=== PATIENT | female | born 1980 | race Caucasian/White ===

== ENCOUNTER 2019-07-19 22:57 | Emergency (ER) | payer BC, SELFPAY ==
[2019-07-19 23:02] VITALS: BP 196/129; PULSE 109; RESP 24; TEMP 36.5; O2SAT 100; BMI 42.9
--- NOTE | 2019-07-19 23:11 | W.ED.ARRPALP ---
HPI - Arrhythmia/Palpitations General: Chief Complaint: Arrhythmia/Palpitations Stated Complaint: heart racing Time Seen by Provider: 07/19/19 23:11 Source: patient Mode of arrival: ambulatory Limitations: no limitations History of Present Illness: HPI narrative: Patient comes in today for concerns of elevated heart rate. Patient states that she was sitting at home watching TV and noticed on her apple watch that her heart rate was elevated. She got more anxious about her heart rate being elevated and it jumped into the 150s. Patient has a family history of early coronary disease with her dad dying of a heart attack at age 36. Patient reports that she has no significant pain in her chest. Patient appears well. Patient appears in no pain. Patient thinks that it may have been a panic attack. Review of Systems General: Reports: 10 or more systems reviewed and unremarkable except in HPI and below Card: Reports: palpitations PFSH ED PFSH: Social History Smoking and tobacco status: never smoked Physical Exam Const: COMMON NORMALS: no acute distress and patient oriented x3 GENERAL APPEARANCE: cooperative HENMT: COMMON NORMALS: normocephalic, TM's normal bilaterally and Normal external nose present HEAD & SCALP: normal to inspection and normocephalic NOSE: Normal external nose present TYMPANIC MEMBRANE: TM's normal bilaterally MOUTH: Normal oral and palatal mucosa present Eye: GENERAL EYE: appearance normal, both eyes and all related structures Neck/C-Spine: COMMON NORMALS: full ROM Lymph: LYMPHATIC: no lymphadenopathy noted Chest: COMMONS NORMALS: normal inspection of the chest Resp: COMMON NORMALS: normal respiratory effort EFFORT & INSPECTION: Yes able to speak in complete sentences Cardio: COMMON NORMALS: regular rate and regular rhythm RATE: regular rate RHYTHM: regular rhythm GI: COMMON NORMALS: non-tender : COMMON NORMALS: Yes no CVA tenderness BLADDER/KIDNEY EXAM: Yes no CVA tenderness Back/Pelvis: COMMON NORMALS: no CVA tenderness and thoracic and lumbar spine normal to inspection Extremity: COMMON NORMALS: normal to inspection Neuro: COMMON NORMALS: patient oriented x3 and moves all extremities Psych: COMMON NORMALS: mental status grossly normal and cooperative Skin: COMMON NORMALS: no rashes or lesions noted GENERAL SKIN EXAM: no rashes or lesions noted Course Vital Signs: Vital signs: Vital Signs Temperature 97.7 F 07/19/19 23:02 Pulse Rate 82 05/18/20 23:54 Respiratory Rate 16 07/19/19 23:54 Blood Pressure 167/108 07/19/19 23:54 Pulse Oximetry 100 07/19/19 23:54 MDM - Arrhythmia/Palpitations MDM Narrative: Medical decision making narrative: Patient comes in tonight with concerns of elevated heart rate. Patient appears well. On exam patient's pulse rate was 100. Patient reports that it was up to 150 at home. Respirations are even lungs are clear to auscultation. No edema is noted in the extremities. Vital signs were normal except for some elevation in blood pressure. Differential diagnosis includes anxiety, arrhythmia, hyperthyroidism, electrolyte disturbance, anemia, PE. Laboratory values were fairly normal are nonspecific. D-dimer was negative. Reviewed exam with patient with recommendations for treatment and follow-up. Encourage healthy diet and activity for blood pressure control. Patient reported understanding and agreed to plan. Lab Data: Labs: Lab Results 07/19/19 07/19/19 07/19/19 Range/Units 23:28 23:28 23:28 WBC 10.6 H (4.0-10.0) 10^3/ uL RBC 4.67 (4.1-5.3) 10^6/u L Hgb 14.3 (11.5-15.3) g/dL Hct 43.8 (37.0-47.0) % MCV 93.8 (81-99) fL MCH 30.6 (28.0-34.0) pg MCHC 32.6 (30.0-36.0) g/dL RDW 11.6 L (12.1-15.1) % Plt Count 245 (130-400) 10^3/c mm MPV 11.7 H (7.4-10.4) fL Neut % (Auto) 60.7 % Lymph % (Auto) 31.0 % [place] % (Auto) 6.7 % Eos % (Auto) 0.8 % Baso % (Auto) 0.4 % Neut # (Auto) 6.5 (1.8-7.7) 10^3/u L Lymph # (Auto) 3.3 (0.8-4.8) 10^3/u L [place] # (Auto) 0.7 (0.2-0.9) 10^3/u L Eos # (Auto) 0.1 (0.0-0.8) 10^3/u L Baso # (Auto) 0.0 (0.0-0.1) 10^3/u L Nucleated RBC % (a uto) 0 % Nucleated RBCs # 0.0 /100WBC D-Dimer 0.52 (0-0.59) ug/mIFE U Sodium 137 (136-145) mmol/L Potassium 4.0 (3.5-5.1) mmol/L Chloride 101 (98-107) mmol/L Carbon Dioxide 23 (22-29) mmol/L Anion Gap 17.0 (5-19) BUN 10 (6-20) mg/dL Creatinine 0.8 (0.5-0.9) mg/dL GFR Calculation 80.3 L (90-130) mL/min Glucose 108 (65-115) mg/dL Calculated Osmolal ity 281 L (285-295) mOsm/k g Calcium 8.9 (8.5-10.5) mg/dL Total Bilirubin 0.3 (0.15-1.2) mg/dL AST 27 (0-32) U/L ALT 20 (0-33) U/L Alkaline Phosphata se 114 H (35-105) IU/L Total Protein 7.9 (6.6-8.7) g/dL Albumin 4.3 (3.5-5.2) g/dL Globulin 3.6 (1.3-4.6) g/dL TSH 3.92 (0.27-4.20) uIU/ mL EKG Data^: EKG 1: Attestation: I personally reviewed and interpreted this EKG as follows: (2308, sinus rhythm rate 94 bpm, regular, no ectopy or ST elevation) Discharge Plan Discharge Patient Disposition: Home, Self-Care Clinical Impression: Palpitations Condition: Stable Discharge Orders: Discharge Order (Routine); Ordered 07/20/19 Ordered By: Billy Johnson Referrals: Grzegorz Macario MD [Primary Care Provider] - Discharge Diet: Usual diet Discharge Activity: Increase activity as tolerated Patient Instructions: Palpitations (ED) Activity Restrictions/Additional Instructions: Home and rest. Drink plenty of fluids. Try to maintain healthy diet and activity. Look up the DASH diet for further assistance with blood pressure control. Follow-up with primary care in 1 week for recheck on blood pressure. Return to the ER for worsening symptoms, chest pain or new concerns. 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
--- NOTE | 2019-07-19 23:17 | ECG_ITS ---
Measurements Intervals [place] Rate: 94 P: 49 ND: 142 QRS: 44 QRSD: 87 T: 24 QT: 355 QTc: 444 SINUS RHYTHM POSSIBLE ANTERIOR MYOCARDIAL INFARCTION [30 ms Q WAVE IN V3/V4, OR R < 0.2 mV IN V4], PROBABLY OLD No previous ECG available for comparison Electronically Signed On 07-20-2019 20:48:51 CDT by Rojelio Walters M.D. [id number]
[2019-07-19 23:36] LABS: Basophils % 0.4 %; Eosinophils # 0.1 10^3/uL (0.0-0.8); Eosinophils % 0.8 %; Hematocrit 43.8 % (37.0-47.0); Hemoglobin 14.3 g/dL (11.5-15.3); Lymphocytes # 3.3 10^3/uL (0.8-4.8); Mean Corpuscular HGB Conc 32.6 g/dL (30.0-36.0); Mean Corpuscular Hemoglobin 30.6 pg (28.0-34.0); Mean Corpuscular Volume 93.8 fL (81-99); Mean Platelet Volume 11.7 fL (7.4-10.4); Monocytes # 0.7 10^3/uL (0.2-0.9); Monocytes % 6.7 %; Neutrophils # 6.5 10^3/uL (1.8-7.7); Neutrophils % 60.7 %; Nucleated Red Blood Cells % 0 %; Platelet Count 245 10^3/cmm (130-400); Red Blood Count 4.67 10^6/uL (4.1-5.3); Red Cell Distribution Width 11.6 % (12.1-15.1); White Blood Count 10.6 10^3/uL (4.0-10.0)
[2019-07-19 23:49] LABS: D Dimer 0.52 ug/mIFEU (0-0.59)
[2019-07-19 23:54] VITALS: BP 167/108; PULSE 82; RESP 16; O2SAT 100
[2019-07-20 00:05] LABS: Alanine Aminotransferase 20 U/L (0-33); Albumin Level 4.3 g/dL (3.5-5.2); Alkaline Phosphatase 114 IU/L (35-105); Blood Urea Nitrogen 10 mg/dL (6-20); Calcium 8.9 mg/dL (8.5-10.5); Carbon Dioxide 23 mmol/L (22-29); Chloride 101 mmol/L (98-107); Globulin 3.6 g/dL (1.3-4.6); Glomerular Filtration Rate 80.3 mL/min (90-130); Glucose 108 mg/dL (65-115); Osmolality Calculated 281 mOsm/kg (285-295); Sodium 137 mmol/L (136-145); Total Bilirubin 0.3 mg/dL (0.15-1.2); Total Protein 7.9 g/dL (6.6-8.7)
[2019-07-20 00:06] LABS: Aspartate Amino Transferase 27 U/L (0-32); Thyroid Stimulating Hormone 3.92 uIU/mL (0.27-4.20)
[2019-07-20 00:12] VITALS: BP 140/95; PULSE 81; RESP 16; O2SAT 100
== END 2019-07-20 00:18 | disposition home or self-care (01) ==
PROVIDERS: Emergency Provider Nurse Practitioner Family; PCP Family Medicine
DX: R00.2 Palpitations (principal)
CPT/HCPCS: 12345; 36415; 80053; 84443; 85025; 85378; 93005; 99282; 99283

== ENCOUNTER → 2019-12-26 17:14 | Outpatient (BNVA) | payer BC, SELFPAY | PROVIDERS: PCP Family Medicine; Visit Provider Emergency Medicine | DX: Z20.828 Contact with and (suspected) exposure to other viral communicable diseases (principal) | CPT/HCPCS: 87635 ==

== ENCOUNTER 2019-12-30 05:31 | Emergency (ER) | payer BC, SELFPAY ==
[2019-12-30 05:32] VITALS: O2SAT 100
--- NOTE | 2019-12-30 05:32 | PC.NURSE ---
Pt stated she has had off and on CP to left chest wall to left arm/to fingers. No associated symptoms. Pt stated her father passed at 36 yrs old secondary to heart attack, continued to stated her mother has a MD in past later years. Pt stated has had prior CP which was treated as Epigastric pain tx with antacid. Pt stated negative for pain on admission to ED
[2019-12-30 05:36] VITALS: PULSE 86; RESP 16; TEMP 36.9; O2SAT 100; BMI 44.6
--- NOTE | 2019-12-30 05:44 | XR_ITS ---
WS: [id number] Exam: XR chest 1V portable [id number] Date/Time of Exam: 12/30/2019 5:46 AM Reason For Exam: Chest pain Comparison 08/15/2013. Findings: The lungs are clear and fully expanded. Costophrenic angles are sharp. No infiltrates. Bronchovascula r relief appears normal. Cardiac silhouette is unremarkable. Bony elements are intact. Monitoring amrgo ds superimpose the chest. XR/XR chest 1V portable [id number] IMPRESSION: Unremarkable chest radiograph.
--- NOTE | 2019-12-30 05:44 | ECG_ITS ---
[facility] Test Date: 2019-12-30 Pat Name: Flores Millan Department: Room: Gender: Female Compressor Technician: : 1980 Requested By: Judy Francisco Order Number: [id number] Billy MD: JEYSON PITT Measurements Intervals [place] Rate: 77 P: 54 FL: 135 QRS: 42 QRSD: 93 T: 35 QT: 390 QTc: 441 Interpretive Statements SINUS RHYTHM INTERPRETATION BASED ON A DEFAULT AGE OF 40 YEARS Compared to ECG 07/19/2019 23:08:29 Myocardial infarct finding no longer present Electronically Signed On 12-30-2019 21:04:49 CDT by JEYSON PITT [id number]
--- NOTE | 2019-12-30 05:45 | ED_ITS ---
Documented by User: Judy Perez 12/30/19 06:01 HPI - Chest Pain General: Chief Complaint: Chest Pain Stated Complaint: cp, burning sensation down arm Time Seen by Provider: 12/30/19 05:41 Source: patient Mode of arrival: ambulatory Limitations: no limitations History of Present Illness: HPI narrative: Flores is a 39-year-old female comes in complaining of chest pressure and shortness of breath began last night. She states the pain radiates down her left arm. She unaware of any exacerbating or alleviating factors. She noticed her blood pressure is running high and she does not have a history of high blood pressure. Patient does have a family history of heart disease but she herself has no chronic medical problems. Patient denies any diaphoresis but did have nausea the patient states that she has had similar symptoms in the past but it was quite some time ago. Patient denies having anything similar to this in the past. She was seen here in the ER for the same complaint and it was determined to be gastrointestinal in cause. Associated symptoms: Reports dyspnea; Deny abdominal pain, diaphoresis, fever(s), nausea, palpitations, syncope or vomiting Review of Systems Const: Denies: fever(s), chills, body aches, fatigue, malaise or diaphoresis Eyes: Denies: change in vision, blurry vision, photophobia, eye discomfort, eye discharge, eye redness or yellow eyes ENMT: Denies: throat pain, odynophagia, hoarseness, swelling of lips/tongue, ear or mastoid pain, ear discharge, change in hearing or nasal discharge Card: Reports: chest pain; Denies: palpitations, irregular heart rhythm, edema, lightheadedness, syncope, pre-syncope, dyspnea on exertion or orthopnea Resp: Reports: dyspnea; Denies: productive cough, non-productive cough, wheezing, hemoptysis or chest congestion GI: Denies: abdominal pain, nausea, vomiting, hematemesis, coffee ground emesis, heartburn, diarrhea, constipation, GI cramping, hematochezia or melena : Denies: flank pain, dysuria, urinary frequency, urinary urgency or hematuria Musc: Denies: neck pain, back pain, extremity pain, extremity swelling, joint pain, joint swelling, joint redness, joint warmth or joint stiffness Skin/Breast: Denies: rash, pruritus, erythema, skin pain or skin tenderness Neuro: Denies: headache(s), numbness in extremities, weakness in extremities, sensory changes, lack of coordination, difficulty walking, dizziness, vertigo, confusion, Slurred speech present or seizure-like activity Augustin/Lymph: Denies: easy bruising, easy bleeding, petechiae, purpura or enlarged lymph nodes All/Imm: Denies: urticaria, throat swelling, tongue swelling, facial swelling or acute wheezing PFSH ED PFSH: Medical History (Updated 12/30/19 @ 08:55 by Joaquin Fabian DO) No pertinent past medical history Family History (Updated 12/30/19 @ 06:00 by Judy Perez) Other CAD (coronary artery disease) Social History Smoking and tobacco status: never smoked Physical Exam Const: COMMON NORMALS: no acute distress, patient oriented x3, no limitations and alert GENERAL APPEARANCE: cooperative HENMT: COMMON NORMALS: normocephalic, atraumatic, external ears normal, EAC's normal and Normal external nose present HEAD & SCALP: normal to inspection, normocephalic and atraumatic FACE & SINUS: normal facial exam and face symmetric NOSE: Normal external nose present and Normal nares present EXTERNAL EAR: Yes external ears normal EXTERNAL AUDITORY CANAL: EAC's normal MOUTH: Normal oral and palatal mucosa present, lip normal and tongue normal Eye: COMMON NORMALS: Equal, round and reactive pupils present and conjunctivae normal GENERAL EYE: appearance normal, both eyes and all related structures ALIGNMENT: Yes alignment normal PERIORBITAL: periorbital findings normal EYELID: eyelids normal CONJUNCTIVA: Yes conjunctivae normal SCLERA: sclerae normal PUPIL: Yes Equal, round and reactive pupils present Neck/C-Spine: COMMON NORMALS: full ROM, no lymphadenopathy, supple, no meningeal signs and no JVD GENERAL: Yes normal visual inspection and Yes trachea midline Chest: COMMONS NORMALS: normal inspection of the chest and normal palpation of entire chest wall Resp: COMMON NORMALS: normal respiratory effort, No retractions, No use of accessory muscles and clear to auscultation bilaterally EFFORT & INSPECTION: Yes able to speak in complete sentences and Yes symmetric chest movement AUSCULTATION: clear to auscultation bilaterally, no crackles, no rales, no rhonchi and no wheezes Cardio: COMMON NORMALS: no JVD, regular rate, regular rhythm, S1 normal heart sound present and S2 normal heart sound present RATE: regular rate RHYTHM: regular rhythm HEART SOUNDS: S1 normal heart sound present, S2 normal heart sound present, no click, no gallops, no murmurs and no rubs GI: COMMON NORMALS: Soft to palpation and No hepatosplenomegaly present PALPATION: Yes Soft to palpation, No Tenderness to palpation present (GI), No Guarding due to palpation present (GI), No Rigid due to palpation, Yes No hepatosplenomegaly present, No Hernia present, No Palpable mass present and No Pulsatile mass present : COMMON NORMALS: Yes no CVA tenderness BLADDER/KIDNEY EXAM: Yes no CVA tenderness EXTERNAL FEMALE EXAM: No Hernia present Back/Pelvis: COMMON NORMALS: no CVA tenderness, thoracic and lumbar spine normal to inspection, no thoracic nor lumbar tenderness and thoraco-lumbar ROM normal Extremity: COMMON NORMALS: normal to inspection, full ROM, capillary refill normal, no joint enlargement, no clubbing, cyanosis or edema and no calf tenderness Neuro: COMMON NORMALS: patient oriented x3, CN's II-XII intact bilaterally, moves all extremities, no focal motor deficits and no sensory deficits noted SENSORIUM/ORIENTATION: Yes alert MENINGEAL SIGNS: Yes no meningeal signs SPEECH: speech normal Psych: COMMON NORMALS: mental status grossly normal, Normal thought process present, cooperative, normal affect, speech normal and activity/motor behavior normal SPEECH: Yes normal speech THOUGHT PROCESS: Normal thought process present Skin: COMMON NORMALS: no rashes or lesions noted, turgor normal, no jaundice, no petechiae and no mottling GENERAL SKIN EXAM: no rashes or lesions noted and turgor normal Procedures EJ/Peripheral Line Arm L: Time Out Performed: Yes Skin Cleansed in Sterile Fashion: Yes Size (gauge): 18 IV Secured and Dressing Applied: Yes Patient Tolerated Procedure: well and no complications Additional Comments: Ultrasound utilized throughout procedure. Course Vital Signs: Vital signs: Vital Signs Temperature 98.4 F 12/30/19 05:36 Pulse Rate 97 12/30/19 06:33 Respiratory Rate 16 12/30/19 06:33 Blood Pressure 141/86 12/30/19 06:33 Pulse Oximetry 97 12/30/19 06:33 MDM - Chest Pain Lab Data: Labs: Lab Results 12/30/19 12/30/19 12/30/19 Range/Units 05:53 05:53 05:53 WBC 10.3 H (4.0-10.0) 10^3/ uL RBC 4.84 (4.1-5.3) 10^6/u L Hgb 15.0 (11.5-15.3) g/dL Hct 44.8 (37.0-47.0) % MCV 92.6 (81-99) fL MCH 31.0 (28.0-34.0) pg MCHC 33.5 (30.0-36.0) g/dL RDW 11.0 L (12.1-15.1) % Plt Count 262 (130-400) 10^3/c mm MPV 11.5 H (7.4-10.4) fL Neut % (Auto) 67.8 % Lymph % (Auto) 25.0 % Cherry % (Auto) 5.4 % Eos % (Auto) 0.6 % Baso % (Auto) 0.7 % Neut # (Auto) 7.01 (1.8-7.7) 10^3/u L Lymph # (Auto) 2.6 (0.8-4.8) 10^3/u L Cherry # (Auto) 0.6 (0.2-0.9) 10^3/u L Eos # (Auto) 0.1 (0.0-0.8) 10^3/u L Baso # (Auto) 0.1 (0.0-0.1) 10^3/u L Nucleated RBC % (a uto) 0 % Nucleated RBCs # 0.0 /100WBC PT 12.70 (12.1-14.9) SECO NDS INR 0.93 (0.8-1.2) Sodium 137 (136-145) mmol/L Potassium 3.6 (3.5-5.1) mmol/L Chloride 103 (98-107) mmol/L Carbon Dioxide 22 (22-29) mmol/L Anion Gap 15.6 (5-19) BUN 9 (6-20) mg/dL Creatinine 0.9 (0.5-0.9) mg/dL GFR Calculation 70.1 L (90-130) mL/min Glucose 117 H (65-115) mg/dL Calculated Osmolal ity 284 L (285-295) mOsm/k g Calcium 9.8 (8.5-10.5) mg/dL Magnesium 2.3 (1.7-2.3) mg/dL Total Bilirubin 0.3 (0.15-1.2) mg/dL AST 16 (0-32) U/L ALT 21 (0-33) U/L Alkaline Phosphata se 104 (35-105) IU/L Troponin T Baselin e (0-10) ng/L Troponin T 120 Min nondalton (0-10) ng/L Delta Troponin T (0-10) ABS# Total Protein 7.7 (6.6-8.7) g/dL Albumin 4.4 (3.5-5.2) g/dL Globulin 3.3 (1.3-4.6) g/dL Lipase 31 (13-60) U/L Urine Color (Yellow) Urine Appearance (CLEAR) Urine pH (5-7) Ur Specific Gravit y (1.005-1.030) Urine Protein (Negative) Urine Glucose (UA) (Normal) Urine Ketones (Negative) Urine Blood (Negative) Urine Nitrate (Negative) Urine Bilirubin (Negative) Urine Urobilinogen (Negative) mg/dL Ur Leukocyte Radha ase (Negative) Urine RBC (0-2) /hpf Urine WBC (0-5) /hpf Ur Squamous Epith Cells (0-5) /hpf Amorphous Sediment Urine Bacteria (NONE) /hpf Urine Mucus /hpf 12/30/19 12/30/19 12/30/19 Range/Units 05:53 06:49 08:13 WBC (4.0-10.0) 10^3/ uL RBC (4.1-5.3) 10^6/u L Hgb (11.5-15.3) g/dL Hct (37.0-47.0) % MCV (81-99) fL MCH (28.0-34.0) pg MCHC (30.0-36.0) g/dL RDW (12.1-15.1) % Plt Count (130-400) 10^3/c mm MPV (7.4-10.4) fL Neut % (Auto) % Lymph % (Auto) % Cherry % (Auto) % Eos % (Auto) % Baso % (Auto) % Neut # (Auto) (1.8-7.7) 10^3/u L Lymph # (Auto) (0.8-4.8) 10^3/u L Cherry # (Auto) (0.2-0.9) 10^3/u L Eos # (Auto) (0.0-0.8) 10^3/u L Baso # (Auto) (0.0-0.1) 10^3/u L Nucleated RBC % (a uto) % Nucleated RBCs # /100WBC PT (12.1-14.9) SECO NDS INR (0.8-1.2) Sodium (136-145) mmol/L Potassium (3.5-5.1) mmol/L Chloride (98-107) mmol/L Carbon Dioxide (22-29) mmol/L Anion Gap (5-19) BUN (6-20) mg/dL Creatinine (0.5-0.9) mg/dL GFR Calculation (90-130) mL/min Glucose (65-115) mg/dL Calculated Osmolal ity (285-295) mOsm/k g Calcium (8.5-10.5) mg/dL Magnesium (1.7-2.3) mg/dL Total Bilirubin (0.15-1.2) mg/dL AST (0-32) U/L ALT (0-33) U/L Alkaline Phosphata se (35-105) IU/L Troponin T Baselin e 6 (0-10) ng/L Troponin T 120 Min nondalton 6.00 (0-10) ng/L Delta Troponin T 0 (0-10) ABS# Total Protein (6.6-8.7) g/dL Albumin (3.5-5.2) g/dL Globulin (1.3-4.6) g/dL Lipase (13-60) U/L Urine Color Yellow (Yellow) Urine Appearance Cloudy (CLEAR) Urine pH 7 (5-7) Ur Specific Gravit y 1.015 (1.005-1.030) Urine Protein Neg (Negative) Urine Glucose (UA) Norm (Normal) Urine Ketones Negative (Negative) Urine Blood 2+ H (Negative) Urine Nitrate Negative (Negative) Urine Bilirubin Neg (Negative) Urine Urobilinogen 4 H (Negative) mg/dL Ur Leukocyte Radha ase 2+ H (Negative) Urine RBC 0-4 H (0-2) /hpf Urine WBC 25-40 H (0-5) /hpf Ur Squamous Epith Cells 55-80 H (0-5) /hpf Amorphous Sediment Not Reportable Urine Bacteria 2+ H (NONE) /hpf Urine Mucus 1+ /hpf EKG Data^: EKG 1: Attestation: I personally reviewed and interpreted this EKG as follows: EKG interpretation date: 12/30/19 EKG interpretation time: 05:40 Interpretation: Normal sinus rhythm at 77 beats a minute, normal axis, no blocks, normal intervals, nonspecific ST and T wave changes. Discharge Plan Discharge Patient Disposition: Home Clinical Impression: Chest pain due to gastrointestinal reflux disease, Occipital neuralgia Condition: Stable Prescriptions: New omeprazole 20 mg capsule,delayed release(DR/EC) 20 mg PO DAILY 28 Days RF: 0 Discharge Orders: Discharge Order (Routine); Ordered 12/30/19 Ordered By: Joaquin Fabian Referrals: Grzegorz Macario MD [Primary Care Provider] - Activity Restrictions/Additional Instructions: Follow-up with your primary care doctor within the next week. Sign Out Sign Out Data: Patient Sign Out occurred on 12/30/19 at 07:04. Patient's care was discussed, and care was transferred from Judy Perez to Joaquin Fabian DO. Sign Out Comment: Case turned over to Dr. Fabian at change of shift. Last updated by Judy Perez at 12/30/19 05:47 Coding Level of Care Code ED Pan Devulcanizer Helper for Chg Fwd Exam Comprehensive Documented by User: Joaqiun Fabian DO 12/30/19 08:55 HPI - Chest Pain General: Chief Complaint: Chest Pain Stated Complaint: cp, burning sensation down arm Time Seen by Provider: 12/30/19 05:41 PFSH ED PFSH: Medical History (Updated 12/30/19 @ 08:55 by Joaquin Fabian DO) No pertinent past medical history Family History (Updated 12/30/19 @ 06:00 by Juyd Perez) Other CAD (coronary artery disease) Social History Smoking and tobacco status: never smoked Course Vital Signs: Vital signs: Vital Signs Temperature 98.4 F 12/30/19 05:36 Pulse Rate 97 12/30/19 06:33 Respiratory Rate 16 12/30/19 06:33 Blood Pressure 141/86 12/30/19 06:33 Pulse Oximetry 97 12/30/19 06:33 MDM - Chest Pain MDM Narrative: Medical decision making narrative: Care assumed a change of shift. Troponin x2 - with a normal delta. She does have occipital neuralgia- like headache with no focal neurologic deficits noted started on omeprazole. Given Toradol and Phenergan for the headache and will have her follow-up with her primary care doctor within the week. Return if has any further problems. Lab Data: Labs: Lab Results 12/30/19 12/30/19 12/30/19 Range/Units 05:53 05:53 05:53 WBC 10.3 H (4.0-10.0) 10^3/ uL RBC 4.84 (4.1-5.3) 10^6/u L Hgb 15.0 (11.5-15.3) g/dL Hct 44.8 (37.0-47.0) % MCV 92.6 (81-99) fL MCH 31.0 (28.0-34.0) pg MCHC 33.5 (30.0-36.0) g/dL RDW 11.0 L (12.1-15.1) % Plt Count 262 (130-400) 10^3/c mm MPV 11.5 H (7.4-10.4) fL Neut % (Auto) 67.8 % Lymph % (Auto) 25.0 % Cherry % (Auto) 5.4 % Eos % (Auto) 0.6 % Baso % (Auto) 0.7 % Neut # (Auto) 7.01 (1.8-7.7) 10^3/u L Lymph # (Auto) 2.6 (0.8-4.8) 10^3/u L Cherry # (Auto) 0.6 (0.2-0.9) 10^3/u L Eos # (Auto) 0.1 (0.0-0.8) 10^3/u L Baso # (Auto) 0.1 (0.0-0.1) 10^3/u L Nucleated RBC % (a uto) 0 % Nucleated RBCs # 0.0 /100WBC PT 12.70 (12.1-14.9) SECO NDS INR 0.93 (0.8-1.2) Sodium 137 (136-145) mmol/L Potassium 3.6 (3.5-5.1) mmol/L Chloride 103 (98-107) mmol/L Carbon Dioxide 22 (22-29) mmol/L Anion Gap 15.6 (5-19) BUN 9 (6-20) mg/dL Creatinine 0.9 (0.5-0.9) mg/dL GFR Calculation 70.1 L (90-130) mL/min Glucose 117 H (65-115) mg/dL Calculated Osmolal ity 284 L (285-295) mOsm/k g Calcium 9.8 (8.5-10.5) mg/dL Magnesium 2.3 (1.7-2.3) mg/dL Total Bilirubin 0.3 (0.15-1.2) mg/dL AST 16 (0-32) U/L ALT 21 (0-33) U/L Alkaline Phosphata se 104 (35-105) IU/L Troponin T Baselin e (0-10) ng/L Troponin T 120 Min nondalton (0-10) ng/L Delta Troponin T (0-10) ABS# Total Protein 7.7 (6.6-8.7) g/dL Albumin 4.4 (3.5-5.2) g/dL Globulin 3.3 (1.3-4.6) g/dL Lipase 31 (13-60) U/L Urine Color (Yellow) Urine Appearance (CLEAR) Urine pH (5-7) Ur Specific Gravit y (1.005-1.030) Urine Protein (Negative) Urine Glucose (UA) (Normal) Urine Ketones (Negative) Urine Blood (Negative) Urine Nitrate (Negative) Urine Bilirubin (Negative) Urine Urobilinogen (Negative) mg/dL Ur Leukocyte Radha ase (Negative) Urine RBC (0-2) /hpf Urine WBC (0-5) /hpf Ur Squamous Epith Cells (0-5) /hpf Amorphous Sediment Urine Bacteria (NONE) /hpf Urine Mucus /hpf 12/30/19 12/30/19 12/30/19 Range/Units 05:53 06:49 08:13 WBC (4.0-10.0) 10^3/ uL RBC (4.1-5.3) 10^6/u L Hgb (11.5-15.3) g/dL Hct (37.0-47.0) % MCV (81-99) fL MCH (28.0-34.0) pg MCHC (30.0-36.0) g/dL RDW (12.1-15.1) % Plt Count (130-400) 10^3/c mm MPV (7.4-10.4) fL Neut % (Auto) % Lymph % (Auto) % Cherry % (Auto) % Eos % (Auto) % Baso % (Auto) % Neut # (Auto) (1.8-7.7) 10^3/u L Lymph # (Auto) (0.8-4.8) 10^3/u L Cherry # (Auto) (0.2-0.9) 10^3/u L Eos # (Auto) (0.0-0.8) 10^3/u L Baso # (Auto) (0.0-0.1) 10^3/u L Nucleated RBC % (a uto) % Nucleated RBCs # /100WBC PT (12.1-14.9) SECO NDS INR (0.8-1.2) Sodium (136-145) mmol/L Potassium (3.5-5.1) mmol/L Chloride (98-107) mmol/L Carbon Dioxide (22-29) mmol/L Anion Gap (5-19) BUN (6-20) mg/dL Creatinine (0.5-0.9) mg/dL GFR Calculation (90-130) mL/min Glucose (65-115) mg/dL Calculated Osmolal ity (285-295) mOsm/k g Calcium (8.5-10.5) mg/dL Magnesium (1.7-2.3) mg/dL Total Bilirubin (0.15-1.2) mg/dL AST (0-32) U/L ALT (0-33) U/L Alkaline Phosphata se (35-105) IU/L Troponin T Baselin e 6 (0-10) ng/L Troponin T 120 Min nondalton 6.00 (0-10) ng/L Delta Troponin T 0 (0-10) ABS# Total Protein (6.6-8.7) g/dL Albumin (3.5-5.2) g/dL Globulin (1.3-4.6) g/dL Lipase (13-60) U/L Urine Color Yellow (Yellow) Urine Appearance Cloudy (CLEAR) Urine pH 7 (5-7) Ur Specific Gravit y 1.015 (1.005-1.030) Urine Protein Neg (Negative) Urine Glucose (UA) Norm (Normal) Urine Ketones Negative (Negative) Urine Blood 2+ H (Negative) Urine Nitrate Negative (Negative) Urine Bilirubin Neg (Negative) Urine Urobilinogen 4 H (Negative) mg/dL Ur Leukocyte Radha ase 2+ H (Negative) Urine RBC 0-4 H (0-2) /hpf Urine WBC 25-40 H (0-5) /hpf Ur Squamous Epith Cells 55-80 H (0-5) /hpf Amorphous Sediment Not Reportable Urine Bacteria 2+ H (NONE) /hpf Urine Mucus 1+ /hpf Discharge Plan Discharge Patient Disposition: Home Clinical Impression: Chest pain due to gastrointestinal reflux disease, Occipital neuralgia Condition: Stable Prescriptions: New omeprazole 20 mg capsule,delayed release(DR/EC) 20 mg PO DAILY 28 Days RF: 0 Discharge Orders: Discharge Order (Routine); Ordered 12/30/19 Ordered By: Joaquin Fabian Referrals: Grzegorz Macario MD [Primary Care Provider] - Activity Restrictions/Additional Instructions: Follow-up with your primary care doctor within the next week. Sign Out Sign Out Data: Patient Sign Out occurred on 12/30/19 at 07:04. Patient's care was discussed, and care was transferred from Judy Perez to Joaquin Fabian DO. Sign Out Comment: Case turned over to Dr. Fabian at change of shift. Last updated by Judy Perez at 12/30/19 05:47 Coding Level of Care Code ED Pan Devulcanizer Helper for Chg Fwd Exam Comprehensive
[2019-12-30 05:59] LABS: Basophils # 0.1 10^3/uL (0.0-0.1); Basophils % 0.7 %; Eosinophils # 0.1 10^3/uL (0.0-0.8); Eosinophils % 0.6 %; Hematocrit 44.8 % (37.0-47.0); Lymphocytes # 2.6 10^3/uL (0.8-4.8); Mean Corpuscular HGB Conc 33.5 g/dL (30.0-36.0); Mean Corpuscular Volume 92.6 fL (81-99); Mean Platelet Volume 11.5 fL (7.4-10.4); Monocytes # 0.6 10^3/uL (0.2-0.9); Monocytes % 5.4 %; Neutrophils # 7.01 10^3/uL (1.8-7.7); Neutrophils % 67.8 %; Nucleated Red Blood Cells % 0 %; Platelet Count 262 10^3/cmm (130-400); Red Blood Count 4.84 10^6/uL (4.1-5.3); White Blood Count 10.3 10^3/uL (4.0-10.0)
--- NOTE | 2019-12-30 06:00 | PC.NURSE ---
Pt stated she is unable to void at this time. Review with pt the need for UA collection
[2019-12-30 06:12] LABS: INR 0.93 (0.8-1.2)
[2019-12-30 06:17] LABS: Alanine Aminotransferase 21 U/L (0-33); Albumin Level 4.4 g/dL (3.5-5.2); Alkaline Phosphatase 104 IU/L (35-105); Anion Gap 15.6 (5-19); Aspartate Amino Transferase 16 U/L (0-32); Blood Urea Nitrogen 9 mg/dL (6-20); Calcium 9.8 mg/dL (8.5-10.5); Carbon Dioxide 22 mmol/L (22-29); Chloride 103 mmol/L (98-107); Globulin 3.3 g/dL (1.3-4.6); Glomerular Filtration Rate 70.1 mL/min (90-130); Glucose 117 mg/dL (65-115); Lipase 31 U/L (13-60); Magnesium 2.3 mg/dL (1.7-2.3); Osmolality Calculated 284 mOsm/kg (285-295); Potassium 3.6 mmol/L (3.5-5.1); Sodium 137 mmol/L (136-145); Total Bilirubin 0.3 mg/dL (0.15-1.2); Total Protein 7.7 g/dL (6.6-8.7)
[2019-12-30 06:19] LABS: Troponin(5th) Baseline 6 ng/L (0-10)
[2019-12-30] MEDS: nitroglycerin 0.4 mg sublingual Tablet SUBLINGUAL (06:26)
[2019-12-30 06:28] VITALS: BP 137/93; PULSE 72; RESP 18; O2SAT 97
--- NOTE | 2019-12-30 06:31 | PC.NURSE ---
provider aware of pain in chest. Pt to receive a GI cocktail.
[2019-12-30] MEDS: lidocaine 2% viscous 15 ML, aluminum-mag hydrox-simethicon 30 ML, sucralfate oral liq 1 GM PO (06:32)
[2019-12-30 06:33] VITALS: BP 141/86; PULSE 97; RESP 16; O2SAT 97
[2019-12-30 07:12] LABS: Bilirubin Urine Neg (Negative); Blood Urine 2+ (Negative); Glucose Urine UA Norm (Normal); Ketones Urine Negative (Negative); Nitrate Urine Negative (Negative); Protein Urine Neg (Negative); Specific Gravity, Urine 1.015 (1.005-1.030); Urine Appearance Cloudy (CLEAR); Urine Color Yellow (Yellow); Urobilinogen Urine 4 mg/dL (Negative); pH Urine 7 (5-7)
[2019-12-30 07:13] LABS: Add Urine Microscopic? YES; Leukocyte Esterase Urine 2+ (Negative)
[2019-12-30 07:16] LABS: Bacteria Urine 2+ /hpf; RBC Urine 0-4 /hpf (0-2); Squamous Epithelial Cell Urine 55-80 /hpf (0-5); WBC Urine 25-40 /hpf (0-5)
[2019-12-30 07:17] LABS: Add Urine Culture? No; Mucus Urine 1+ /hpf
--- NOTE | 2019-12-30 07:44 | ECG_ITS ---
[facility] Test Date: 2019-12-30 Pat Name: Flores Millan Department: Room: Gender: Female Outreach Analyst: : 1980 Requested By: Judy Francisco Order Number: [id number] Billy MD: JEYSON PITT Measurements Intervals [place] Rate: 71 P: 44 AK: 138 QRS: 54 QRSD: 83 T: 30 QT: 386 QTc: 420 Interpretive Statements SINUS RHYTHM Compared to ECG 12/30/2019 05:40:51 No significant changes Electronically Signed On 12-30-2019 21:06:05 CDT by JEYSON PITT [id number]
[2019-12-30] MEDS: acetaminophen 500 mg Tablet 1000 MG PO (07:49)
[2019-12-30 08:43] LABS: Troponin 5 2HR Delta 0 ABS# (0-10)
[2019-12-30] MEDS: promethazine 25 mg/mL SDV 1 mL IM (09:05)
[2019-12-30] MEDS: ketorolac 30 mg/mL INJ IVP (09:05)
[2019-12-30 09:08] VITALS: BP 154/93; PULSE 72; RESP 22; O2SAT 97
== END 2019-12-30 09:08 | disposition home or self-care (01) ==
PROVIDERS: Emergency Medicine; Emergency Provider Family Medicine; PCP Family Medicine
DX: K21.9 Gastro-esophageal reflux disease without esophagitis (principal); M54.81 Occipital neuralgia
CPT/HCPCS: 12345; 36573; 71045; 80053; 81001; 83690; 83735; 84484; 85025; 85610; 93005; 96372; 96374; 96375; 99284; J1885; J2550

== ENCOUNTER 2022-01-12 13:16 | Emergency (ER) | payer BC, SELFPAY ==
[2022-01-12 13:20] VITALS: BP 168/100; PULSE 84; RESP 16; TEMP 36.8; O2SAT 97; BMI 47.8
[2022-01-12] MEDS: diphenhydrAMINE 50 mg/mL SDV 1mL IM (14:15)
[2022-01-12] MEDS: dexamethasone 10 mg/mL INJ IM (14:17)
--- NOTE | 2022-01-12 14:18 | ED_ITS ---
HPI - General Adult General: Chief complaint: General Medical Stated complaint: Broke out in hives and infection on both legs Time Seen by Provider: 01/12/22 14:04 History of Present Illness: 41-year-old female presents to the emergency room with a skin rash. 5 days ago she started oral Bactrim high-dose for the cellulitis posterior aspect of her left lower leg. This morning she started having a rash. Rash is systemic on her torso and extremities she is not any difficulty breathing or swallowing. Onset (ago): hour(s) Location: neck, chest, back, abdomen, left, right, upper extremity and lower extremity Severity: moderate Relieving factors: none Exacerbating factors: none Associated symptoms: Reports rash; Deny chest pain, confusion, cough, diaphoresis, decreased appetite, dyspnea, fevers/chills, headache(s), malaise, nausea, palpitations, seizures, short of breath, syncope, vomiting or weakness Treatments prior to arrival: none Review of Systems Const: Denies: fever(s), chills, malaise or diaphoresis ENMT: Denies: throat pain, uvular edema, enlarged tonsils, odynophagia or hoarseness Card: Denies: chest pain, palpitations, irregular heart rhythm, edema or syncope Resp: Denies: dyspnea GI: Denies: abdominal pain, nausea or vomiting Skin/Breast: Reports: rash Neuro: Denies: headache(s) or confusion [facility] ED PFSH: Medical History No pertinent past medical history Family History Other CAD (coronary artery disease) Social History Smoking and tobacco status: never smoked Physical Exam Const: COMMON NORMALS: no acute distress GENERAL APPEARANCE: cooperative and comfortable ORIENTATION/CONSCIOUSNESS: Yes awake, Yes oriented to person, Yes oriented to place and Yes oriented to time HENMT: COMMON NORMALS: normocephalic, atraumatic and hearing grossly normal bilaterally HEAD & SCALP: normocephalic and atraumatic THROAT: no uvular edema Resp: COMMON NORMALS: normal respiratory effort, No retractions, No use of accessory muscles and clear to auscultation bilaterally AUSCULTATION: clear to auscultation bilaterally Cardio: COMMON NORMALS: regular rate, regular rhythm and No murmurs present (Cardio) RATE: regular rate RHYTHM: regular rhythm GI: COMMON NORMALS: Soft to palpation and No hepatosplenomegaly present AUSCULTATION: Yes normoactive bowel sounds PALPATION: Yes Soft to palpation, No Tenderness to palpation present (GI), No Guarding due to palpation present (GI) and Yes No hepatosplenomegaly present Extremity: COMMON NORMALS: normal to inspection, capillary refill normal, no clubbing, cyanosis or edema, no calf tenderness and no pedal edema Neuro: SENSORIUM/ORIENTATION: Yes oriented to person, Yes oriented to place and Yes oriented to time Skin: COMMON NORMALS: no rashes or lesions noted GENERAL SKIN EXAM: no rashes or lesions noted OTHER: Fine raised red rash was some coalescing lesions most prominent on the extremities neck and trunk. Is systemic in nature sparing the face and scalp. No vesicles. Course Vital Signs: Vital signs: Vital Signs Temperature 98.2 F 01/12/22 13:20 Pulse Rate 78 01/12/22 14:41 Respiratory Rate 18 01/12/22 14:41 Blood Pressure 144/91 01/12/22 14:41 Pulse Oximetry 96 01/12/22 14:41 Oxygen Delivery Me thod 01/12/22 13:20 MDM - General Adult Medical Decision Making Stop Bactrim start clindamycin. Patient given steroids here rash improved she is also given Benadryl discharge patient home start steroid taper tomorrow can use hydroxyzine in addition to it follow-up with her primary care doctor if not improving if worsens or changes return avoid use of sulfa products in the future. Medical Records I reviewed the patient's medical records. Lab Data I reviewed the patient's lab results. Discharge Plan Discharge Patient Disposition: Home Clinical Impression: Allergic reaction to sulfonamide Condition: Stable Prescriptions: New prednisone 20 mg tablet 20 mg PO TID Qty: 15 0RF Rx Instructions: 1 p.o. 3 times daily x3 days, 1 p.o. twice daily x2 days, 1 p.o. daily x2 days hydroxyzine HCl 25 mg tablet 25 mg PO Q6H PRN (Reason: itching) Qty: 20 0RF clindamycin HCl 300 mg capsule 300 mg PO QID 10 Days Qty: 40 0RF Discharge Orders: Discharge ED (Routine); Ordered 01/12/22 Ordered By: Joaquin Fabian Referrals: Grzegorz Macario MD [Primary Care Provider] - Discharge Diet: Usual diet Discharge Activity: Increase activity as tolerated Patient Instructions: Opioid Safety, Pain Management Activity Restrictions/Additional Instructions: Stop Bactrim start the clindamycin prescription given today. You are discharged home with a prednisone taper start to that taper tomorrow you were given IM prednisone in the emergency room today. You may use the hydroxyzine as needed for itching. Follow-up with your doctor as needed. Coding Level of Care Code ED Manufacturing Finance Manager for Chg Fwd Exam Detailed
--- NOTE | 2022-01-12 14:25 | PC.NURSE ---
pt reports started Bactrim a few days ago and 30 minutes ago began having a red warm rash to BUE. pt denies any difficulty breathing. lung sounds clear bilat. oral mucosa pink and moist. no abnormal airway noises. self maintained, patent airway.
[2022-01-12 14:41] VITALS: BP 144/91; PULSE 78; RESP 18; O2SAT 96
== END 2022-01-12 14:55 | disposition home or self-care (01) ==
PROVIDERS: Emergency Provider Family Medicine; PCP Family Medicine
DX: T78.40XA Allergy, unspecified, initial encounter (principal); T37.0X5A Adverse effect of sulfonamides, initial encounter
CPT/HCPCS: 96372; 99284; J1100; J1200

== ENCOUNTER 2023-08-12 07:43 | Inpatient (IN) | payer OTHER, SELFPAY ==
[2023-08-12 07:56] VITALS: BP 174/114; PULSE 78; RESP 16; TEMP 36.7; O2SAT 100
--- NOTE | 2023-08-12 07:57 | W.ED.SKABFB ---
HPI - Skin/Abscess/Foreign Bdy General: Chief complaint: Skin/Abscess/Foreign Body Stated complaint: spider bite, rash all over Time Seen by Provider: 08/12/23 07:50 Source: patient Mode of arrival: ambulatory History of Present Illness: 43-year-old female presents emergency room with complaint of rash. Patient seen 4 days ago at a local walk-in clinic was started on doxycycline for presumed spider bite. Now she is reporting rash has worsened. She previously had allergic reaction to Bactrim. She did have some associated nausea and vomiting. She has developed fluid-filled blister the skin at the site of the initial bite on the right buttock. Subjectively she has not felt like she had a fever. She has been taking prednisone 20 mg daily for the last couple days cut down to 10 today. The rash itches but does not particularly burn. complaint: rash Onset (ago): day(s) Associated symptoms: Reports fever(s) (Subjective), itching and nausea; Deny arthralgias, chills, cough, myalgias, rigidity, short of breath or vomiting Treatments prior to arrival: corticosteroid and antibiotic Review of Systems Const: Reports: fever(s) (Subjective); Denies: chills Card: Denies: chest pain Resp: Denies: dyspnea GI: Reports: nausea; Denies: abdominal pain or vomiting : Denies: dysuria, urinary frequency or urinary urgency Musc: Denies: neck pain or back pain Skin/Breast: Reports: rash, pruritus and erythema; Denies: skin pain or skin tenderness [facility] PFSH: Medical History (Updated 08/12/23 @ 11:20 by Joaquin Fabian DO) GERD (gastroesophageal reflux disease) No pertinent past medical history Family History Other CAD (coronary artery disease) Social History (Updated 08/12/23 @ 11:04 by Gomez Gonzalez MD) Smoking and tobacco/nicotine status: never used tobacco/nicotine Alcohol intake: never Physical Exam Const: GENERAL APPEARANCE: cooperative and comfortable ORIENTATION/CONSCIOUSNESS: Yes awake, Yes oriented to person, Yes oriented to place and Yes oriented to time HENMT: COMMON NORMALS: normocephalic, atraumatic and hearing grossly normal bilaterally HEAD & SCALP: normocephalic and atraumatic Resp: COMMON NORMALS: normal respiratory effort, No retractions, No use of accessory muscles and clear to auscultation bilaterally AUSCULTATION: clear to auscultation bilaterally Cardio: COMMON NORMALS: regular rate, regular rhythm and No murmurs present (Cardio) RATE: regular rate RHYTHM: regular rhythm GI: COMMON NORMALS: Soft to palpation and No hepatosplenomegaly present AUSCULTATION: Yes normoactive bowel sounds PALPATION: Yes Soft to palpation, No Tenderness to palpation present (GI), No Guarding due to palpation present (GI) and Yes No hepatosplenomegaly present Extremity: COMMON NORMALS: normal to inspection, capillary refill normal, no clubbing, cyanosis or edema, no calf tenderness and no pedal edema Neuro: SENSORIUM/ORIENTATION: Yes oriented to person, Yes oriented to place and Yes oriented to time Skin: OTHER: Patient has a rash concentrated on the body sparing the distal extremities more noticeable in the proximal extremities. It is pruritic. She has a serosanguineous filled bulla at the site of the initial bite with a rash immediately around that and then spreading there is known to typical urticarial wheals and hives associated with this rash. Course Vital Signs: Vital signs: Vital Signs Temperature 98.1 F 08/12/23 07:56 Pulse Rate 58 L 08/12/23 10:11 Respiratory Rate 16 08/12/23 07:56 Blood Pressure 174/114 08/12/23 07:56 Pulse Oximetry 99 08/12/23 10:11 MDM - Skin/Abscess/Foreign Bdy Medicial Decision Making Failure of outpatient treatment. This could be allergic reaction to doxycycline white count may be elevated due to her being on steroids other considerations this is a disseminated staphylococcal rash cultures obtained, started on vancomycin discussed with hospitalist will place in observation Medical Records I reviewed the patient's medical records. Lab Data I reviewed the patient's lab results. 08/12/23 08:20 08/12/23 08:20 Laboratory Results WBC 20.41 10^3/uL (3.29-11.43) H 08/12/23 08:20 RBC 4.90 10^6/uL (3.85-5.65) 08/12/23 08:20 Hgb 15.40 g/dL (11.27-16.99) 08/12/23 08:20 Hct 44.7 % (36-47) 08/12/23 08:20 MCV 91.2 fl (85-98) 08/12/23 08:20 MCH 31.4 pg (27-33) 08/12/23 08:20 MCHC 34.5 g/dL (30-55) 08/12/23 08:20 RDW 11.9 % (12.1-15.1) L 08/12/23 08:20 Plt Count 255 10^3/cmm (157-399) 08/12/23 08:20 MPV 11.8 fL (7.4-10.4) H 08/12/23 08:20 Neut % (Auto) 85.1 % 08/12/23 08:20 Lymph % (Auto) 6.4 % 08/12/23 08:20 [place] % (Auto) 4.9 % 08/12/23 08:20 Eos % (Auto) 3.0 % 08/12/23 08:20 Baso % (Auto) 0.1 % 08/12/23 08:20 Neut # (Auto) 17.35 10^3/uL (1.8-7.7) H 08/12/23 08:20 Lymph # (Auto) 1.3 10^3/uL (0.8-4.8) 08/12/23 08:20 [place] # (Auto) 1.0 10^3/uL (0.2-0.9) H 08/12/23 08:20 Eos # (Auto) 0.6 10^3/uL (0.0-0.8) 08/12/23 08:20 Baso # (Auto) 0.0 10^3/uL (0.0-0.1) 08/12/23 08:20 Nucleated RBC % (auto) 0 % 08/12/23 08:20 Nucleated RBCs # 0.0 /100WBC 08/12/23 08:20 Sodium 139 mmol/L (136-145) 08/12/23 08:20 Potassium 3.4 mmol/L (3.5-5.1) L 08/12/23 08:20 Chloride 105 mmol/L (98-107) 08/12/23 08:20 Carbon Dioxide 21 mmol/L (22-29) L 08/12/23 08:20 Anion Gap 16.4 (5-19) 08/12/23 08:20 BUN 15 mg/dL (6-20) 08/12/23 08:20 Creatinine 0.8 mg/dL (0.5-0.9) 08/12/23 08:20 GFR Calculation 78.7 mL/min (90-130) L 08/12/23 08:20 Glucose 96 mg/dL (65-115) 08/12/23 08:20 Calculated Osmolality 289 mOsm/kg (285-295) 08/12/23 08:20 Calcium 8.9 mg/dL (8.5-10.5) 08/12/23 08:20 Total Bilirubin 0.3 mg/dL (0.15-1.2) 08/12/23 08:20 AST 26 U/L (0-32) 08/12/23 08:20 ALT 35 U/L (0-33) H 08/12/23 08:20 Alkaline Phosphatase 89 U/L (35-105) 08/12/23 08:20 Total Protein 7.4 g/dL (6.6-8.7) 08/12/23 08:20 Albumin 3.9 g/dL (3.5-5.2) 08/12/23 08:20 Globulin 3.5 g/dL (1.3-4.6) 08/12/23 08:20 No radiology studies performed this visit Discharge Plan Discharge Patient Disposition: Placed in Observation Clinical Impression: Staph skin infection, Allergic drug reaction Condition: Stable Prescriptions: No Action Sprintec (28) 0.25-35 mg-mcg tablet 1 tab PO DAILY prednisone 10 mg tablet See Rx Instructions .ROUTE .COMPLEX Rx Instructions: TAKE 2 TABLETS BY MOUTH ONCE DAILY FOR 4 DAYS AND THEN TAKE 1 TAB ONCE DAILY FOR 4 DAYS. doxycycline hyclate 100 mg capsule 100 mg PO BID triamcinolone acetonide 0.1 % cream See Rx Instructions .ROUTE .COMPLEX Rx Instructions: APPLY A THIN LAYER TO THE AFFECTED AREA(S) TWICE A DAY NEEDED. omeprazole 20 mg capsule,delayed release(DR/EC) 20 mg PO QAM Referrals: Grzegorz Macario MD [Primary Care Provider] - Coding Level of Care Code ED Ice Puller for Chg Yana
[2023-08-12 08:29] LABS: Basophils % 0.1 %; Eosinophils # 0.6 10^3/uL (0.0-0.8); Hematocrit 44.7 % (36-47); Lymphocytes # 1.3 10^3/uL (0.8-4.8); Lymphocytes % 6.4 %; Mean Corpuscular HGB Conc 34.5 g/dL (30-55); Mean Corpuscular Hemoglobin 31.4 pg (27-33); Mean Corpuscular Volume 91.2 fl (85-98); Mean Platelet Volume 11.8 fL (7.4-10.4); Monocytes % 4.9 %; Neutrophils # 17.35 10^3/uL (1.8-7.7); Neutrophils % 85.1 %; Nucleated Red Blood Cells % 0 %; Platelet Count 255 10^3/cmm (157-399); Red Cell Distribution Width 11.9 % (12.1-15.1); White Blood Count 20.41 10^3/uL (3.29-11.43)
[2023-08-12 08:43] LABS: Alanine Aminotransferase 35 U/L (0-33); Albumin Level 3.9 g/dL (3.5-5.2); Alkaline Phosphatase 89 U/L (35-105); Anion Gap 16.4 (5-19); Aspartate Amino Transferase 26 U/L (0-32); Blood Urea Nitrogen 15 mg/dL (6-20); Calcium 8.9 mg/dL (8.5-10.5); Carbon Dioxide 21 mmol/L (22-29); Chloride 105 mmol/L (98-107); Creatinine Clr Calc Pharmacy 115.2641; Globulin 3.5 g/dL (1.3-4.6); Glomerular Filtration Rate 78.7 mL/min (90-130); Glucose 96 mg/dL (65-115); Osmolality Calculated 289 mOsm/kg (285-295); Potassium 3.4 mmol/L (3.5-5.1); Sodium 139 mmol/L (136-145); Total Bilirubin 0.3 mg/dL (0.15-1.2); Total Protein 7.4 g/dL (6.6-8.7)
[2023-08-12] MEDS: diphenhydrAMINE 50 mg/mL SDV 1mL 25 MG IVP (09:34)
[2023-08-12] MEDS: vancomycin 1,000 MG in sodium chloride 0.9% 250 ML 250 MG IV (09:37)
[2023-08-12 10:11] VITALS: PULSE 58; O2SAT 99
--- NOTE | 2023-08-12 11:01 | P.HP_ITS ---
Providers/Chief Complaint 2 Admitting Physician: Gomez Gonzalez MD Primary Care Provider: Grzegorz Macario MD Chief Complaint: spider bite, rash all over History of Present Illness Flores Millan is a 43 year old female presenting to the hospital with concern of rash, and concern of potential spider bite right buttocks. She reports on Friday when putting her clothes on she felt a significant pinch in her right buttock area. She noticed a blister the next day, and had some nausea and vomiting. Today she has been a little bit nauseous but no vomiting. She went to urgent care Friday morning and got doxycycline. She developed hives at some point, not necessarily related to the doxycycline and return for steroids which were initiated. She has since noticed no hives, but a systemic rash that itches significantly widespread over her body including at least her right palm. There has been no mucous membrane involvement. She has had reactions with hives due to Bactrim and clindamycin in the past. She has not had any fever. She received vancomycin in the emergency department along with Benadryl. Review of Systems 2 Const: Denies: fever(s) Card: Denies: chest pain Resp: Denies: dyspnea GI: Reports: nausea and vomiting; Denies: abdominal pain, hematochezia or melena Medications/Allergies Home Medications Medication Instructions Recorded Confirmed Last Taken Type doxycycline hyclate 100 mg capsule 100 mg PO BID 08/12/23 08/12/23 08/12/23 History norgestimate 0.25 mg-ethinyl 1 tab PO DAILY 08/12/23 08/12/23 08/11/23 History estradiol 35 mcg tablet (Sprintec (28)) omeprazole 20 mg capsule,delayed 20 mg PO QAM 08/12/23 08/12/23 08/12/23 History release prednisone 10 mg tablet See Rx Instructions .Route .COMPLEX 08/12/23 08/12/23 08/12/23 History triamcinolone acetonide 0.1 % See Rx Instructions .Route .COMPLEX 08/12/23 08/12/23 Unknown History topical cream Allergies Allergy/AdvReac Type Severity Reaction Status Date / Time Sulfa (Sulfonamide Allergy Intermediate Rash Verified 01/12/22 17:17 Antibiotics) aspirin Allergy Unknown Verified 12/26/19 16:49 Penicillins Allergy ALGY-Hives Verified 12/26/19 16:49 PFSH Acute 2 PFSH: Medical History (Updated 08/12/23 @ 11:11 by Gomez Gonzalez MD) GERD (gastroesophageal reflux disease) No pertinent past medical history Family History Other CAD (coronary artery disease) Social History (Updated 08/12/23 @ 11:04 by Gomez Gonzalez MD) Smoking and tobacco/nicotine status: never used tobacco/nicotine Alcohol intake: never Vitals/I&O/Wt Last Vital Signs Temp 98.1 F 08/12/23 07:56 Pulse 58 L 08/12/23 10:11 Resp 16 08/12/23 07:56 BP 174/114 08/12/23 07:56 Pulse Ox 99 08/12/23 10:11 Weight last 48 hrs Weight 120.656 kg Physical Exam 2 Narrative: General exam is a white female, no distress complaining of pain at the blister area and itching over her skin HEENT: Atraumatic and normocephalic. Oropharynx is clear. No lesions or rash are noted in the oropharynx. Neck is supple no lymphadenopathy thyromegaly Cardiovascular regular rate and rhythm without murmur Lungs clear Abdomen is soft Buttocks examined with life skills specialist present demonstrating a blistered area with surrounding contusion and surrounding erythema. The blister itself appears to have clear fluid in it and is 3 cm in diameter. The area of bruising is 1 cm beyond that and erythema to several centimeters beyond that. Extremities no cyanosis clubbing or edema Skin demonstrates a maculopapular rash that is sandpaper in some areas that does seem to show some increased erythema at least over the right palm. Neuro no obvious focal deficits Data 08/12/23 08:20 08/12/23 08:20 Other Labs: LFTs are normal with exception of ALT which is 35. Bilirubin is normal. Hemoglobin and platelets are normal. I have ordered a urinalysis and an hCG. Micro: Microbiology 08/12/23 09:10 Blood Culture - Preliminary Blood SPECIMEN COLLECTED 08/12/23 08:20 Blood Culture - Preliminary Blood SPECIMEN COLLECTED A&P Assessment and plan (1) Abscess of buttock: Patient has significant blistering with areas of erythema around the central lesion on her right buttocks. This likely represents a toxin effect of brown recluse. Cannot completely exclude infection secondary to her markedly elevated white blood cell count. She does have some clear fluid under the blister but nothing suggesting significant pus and no fluctuance in the surrounding tissues. At this point I favor spider envenomation with local effect as well as likely systemic effect. She did have nausea and vomiting hours after the event. As of yet I do not see evidence of hemolysis on her blood work. Will check urinalysis as well. hCG is indicated as she will be being observed in the hospital. Cannot completely exclude bacterial infection of the area with systemic rash. She was started on vancomycin through the emergency department which is appropriate. Culture has been drawn. Will check an MRSA PCR has on discharge she will not be a good candidate for doxycycline or Bactrim. (2) Rash: Rash is significantly pruritic. This could be systemic effect of spider envenomation, or potentially reaction to doxycycline as she has had significant reaction to clindamycin in the past. Benadryl as needed for itching Close monitoring No further steroids at this time Monitor for mucous membrane involvement Plan Mild hypokalemia, supplement Attestations 2 Medical Necessity Statement*: Will need less than 2 midnight stay for evaluation and treatment of widespread rash, concern of cellulitis/abscess Diagnoses Abscess of buttock L02.31 Rash R21 Time Spent (min) 63
[2023-08-12 11:28] LABS: HCG, Serum Qual Negative (Negative)
[2023-08-12 11:38] LABS: Procalcitonin 0.06 ng/mL (0-0.5)
[2023-08-12] MEDS: potassium chloride ER 20 mEq Tablet 40 MEQ PO (11:48)
[2023-08-12 12:16] VITALS: BP 174/114; PULSE 58; RESP 16; TEMP 36.7; O2SAT 99
[2023-08-12] MEDS: diphenhydrAMINE 25 mg Capsule PO ×3 (12:41→21:39)
[2023-08-12] MEDS: acetaminophen 325 mg Tablet 650 MG PO (12:41)
[2023-08-12 13:58] VITALS: BP 142/84
[2023-08-12] MEDS: tetanus-diphtheria tox (adult) 0.5 mL SDV IM (14:38)
[2023-08-12 16:00] VITALS: BP 137/84; PULSE 60; RESP 17; TEMP 36.9; O2SAT 97
[2023-08-12] MEDS: vancomycin 1,500 MG/300 ML PIGGYBACK 200 MG IV (17:44)
[2023-08-12 19:59] VITALS: BP 147/82; PULSE 68; RESP 18; TEMP 36.9; O2SAT 98
[2023-08-12 20:41] LABS: Bilirubin Urine Neg (Negative); Blood Urine Neg (Negative); Glucose Urine UA Norm (Normal); Ketones Urine Negative (Negative); Leukocyte Esterase Urine Trace (Negative); Nitrate Urine Negative (Negative); Protein Urine Neg (Negative); Urine Appearance Slightly Cloudy (CLEAR); Urine Color Yellow (Yellow); Urobilinogen Urine 1 mg/dL (Negative); pH Urine 5 (5-7)
[2023-08-12 20:42] LABS: Bacteria Urine 1+ /hpf; Mucus Urine TRACE /hpf; RBC Urine 0-4 /hpf (0-2)
[2023-08-12 20:43] LABS: Add Urine Culture? No
[2023-08-13] VITALS: BP 164/78; PULSE 69; RESP 17; TEMP 36.8; O2SAT 98
[2023-08-13] MEDS: diphenhydrAMINE 25 mg Capsule PO ×5 (01:34→19:34)
[2023-08-13 04:00] VITALS: BP 166/80; PULSE 85; RESP 18; TEMP 36.8; O2SAT 99
[2023-08-13 05:16] LABS: Basophils # 0.1 10^3/uL (0.0-0.1); Basophils % 0.3 %; Eosinophils # 1.3 10^3/uL (0.0-0.8); Eosinophils % 4.5 %; Hematocrit 44.9 % (36-47); Lymphocytes # 2.7 10^3/uL (0.8-4.8); Lymphocytes % 9.6 %; Mean Corpuscular HGB Conc 33.9 g/dL (30-55); Mean Corpuscular Hemoglobin 31.7 pg (27-33); Mean Corpuscular Volume 93.5 fl (85-98); Mean Platelet Volume 11.5 fL (7.4-10.4); Monocytes # 1.4 10^3/uL (0.2-0.9); Monocytes % 5.2 %; Neutrophils # 22.21 10^3/uL (1.8-7.7); Neutrophils % 79.8 %; Nucleated Red Blood Cells % 0 %; Platelet Count 275 10^3/cmm (157-399); Red Cell Distribution Width 11.9 % (12.1-15.1); White Blood Count 27.81 10^3/uL (3.29-11.43)
[2023-08-13] MEDS: acetaminophen 325 mg Tablet 650 MG PO (05:17)
[2023-08-13] MEDS: vancomycin 1,500 MG/300 ML PIGGYBACK 200 MG IV ×2 (05:17→17:39)
[2023-08-13 05:41] LABS: Alanine Aminotransferase 37 U/L (0-33); Albumin Level 3.6 g/dL (3.5-5.2); Alkaline Phosphatase 84 U/L (35-105); Anion Gap 17.8 (5-19); Aspartate Amino Transferase 20 U/L (0-32); Blood Urea Nitrogen 12 mg/dL (6-20); Calcium 8.6 mg/dL (8.5-10.5); Carbon Dioxide 19 mmol/L (22-29); Chloride 102 mmol/L (98-107); Creatinine Clr Calc Pharmacy 116.6576; Globulin 3.1 g/dL (1.3-4.6); Glomerular Filtration Rate 78.7 mL/min (90-130); Glucose 96 mg/dL (65-115); Osmolality Calculated 280 mOsm/kg (285-295); Potassium 3.8 mmol/L (3.5-5.1); Sodium 135 mmol/L (136-145); Total Bilirubin 0.5 mg/dL (0.15-1.2); Total Protein 6.7 g/dL (6.6-8.7)
[2023-08-13 07:56] VITALS: BP 150/91; PULSE 105; RESP 18; TEMP 37; O2SAT 99
[2023-08-13] MEDS: pantoprazole DR 40 mg Tablet PO (09:13)
[2023-08-13] MEDS: methylPREDNISolone sod succ 125 mg/2 mL INJ IVP (09:47)
[2023-08-13 09:53] LABS: Erythrocyte Sedimentation Rate 14 mm/hr (0-15)
[2023-08-13 10:07] LABS: C Reactive Protein 36.9 mg/L (0.0-4.9)
--- NOTE | 2023-08-13 11:10 | P.PN_ITS ---
Subjective 2 Subjective: Flores reports her rash is somewhat worse today. It still itches. Slightly painful where edema is occurring. And now affects her palms on both sides and her hands feel a little swollen. Denies any mucous membrane involvement, tongue swelling, wheezing, lip lesions. Medications: Reviewed: Yes Vitals/I&O/Wt Last Vital Signs Temp 98.6 F 08/13/23 07:56 Pulse 105 H 08/13/23 07:56 Resp 18 08/13/23 07:56 BP 150/91 08/13/23 07:56 Pulse Ox 99 08/13/23 07:56 O2 Del Method Room Air 08/13/23 07:56 08/12/23 08/13/23 08/13/23 22:59 06:59 14:59 Intake Total 780 / 1030 300 / 1330 360 / 360 Balance 780 / 1030 300 / 1330 360 / 360 Weight last 48 hrs Weight 123.065 kg Weight 121.109 kg Weight 120.656 kg Physical Exam 2 Narrative: General exam is a white female, widespread rash HEENT: No lip or oropharyngeal involvement Neck is supple no lymphadenopathy thyromegaly Cardiovascular regular rate and rhythm without murmur Lungs clear Abdomen is soft Buttocks examined with manufacturing engineer paint present demonstrating a blistered area with surrounding contusion and surrounding erythema. The blister itself appears to have clear fluid in it and is 3 cm in diameter. The area of bruising is 1 cm beyond that and erythema to several centimeters beyond that. Extremities no cyanosis clubbing or edema Skin demonstrates a maculopapular rash that is sandpaper in some areas that does seem to show some increased erythema over both palms Data 08/13/23 05:08 08/13/23 05:08 Micro: Microbiology 08/12/23 09:10 Blood Culture - Preliminary Blood NEGATIVE TO DATE 08/12/23 08:20 Blood Culture - Preliminary Blood NEGATIVE TO DATE A&P Assessment and plan (1) Abscess of buttock: Patient has significant blistering with areas of erythema around the central lesion on her right buttocks. This likely represents a toxin effect of brown recluse. Cannot completely exclude infection secondary to her markedly elevated white blood cell count. She does have some clear fluid under the blister but nothing suggesting significant pus and no fluctuance in the surrounding tissues. At this point I favor spider envenomation with local effect as well as likely systemic effect. She did have nausea and vomiting hours after the event. As of yet I do not see evidence of hemolysis on her blood work. Hemoglobin is normal today as well as bilirubin. Urinalysis no proteinuria. hCG negative. She is still having significant systemic affect of envenomation with widespread rash that is progressing. Solu-Medrol 125 mg IV times now as this could potentially be reaction to doxycycline as well. Continue vancomycin as infection is not completely excluded although no fever has presented white blood cell count has increased. Not appropriate for discharge secondary to these reasons and will be changed to a full admission. Check sedimentation rate, CRP. Procalcitonin was checked yesterday and negative. Await blood cultures. MRSA PCR pending (2) Rash: Rash is significantly pruritic. This could be systemic effect of spider envenomation, or potentially reaction to doxycycline as she has had significant reaction to clindamycin in the past. Benadryl as needed for itching Close monitoring Solu-Medrol 125 mg IV every 24 hours Monitor for mucous membrane involvement Discussed briefly with dermatology. Plan Mild hypokalemia, supplemented and normal today Attestations 2 Medical Necessity Statement*: Requires continued hospitalization secondary to progressing rash, increasing white blood cell count in this patient with systemic effect of envenomation Diagnoses Abscess of buttock L02.31 Rash R21 Time Spent (min) 25
[2023-08-13 11:23] VITALS: BP 149/89; PULSE 69; RESP 17; TEMP 36.9; O2SAT 96
[2023-08-13 16:30] VITALS: BP 119/78; PULSE 64; RESP 17; TEMP 36.7; O2SAT 97
[2023-08-13 20:00] VITALS: BP 154/75; PULSE 71; RESP 17; TEMP 36.7; O2SAT 97
[2023-08-14] VITALS: BP 135/72; PULSE 73; RESP 19; TEMP 36.8; O2SAT 97
[2023-08-14] MEDS: diphenhydrAMINE 25 mg Capsule PO ×3 (00:19→09:07)
[2023-08-14 04:00] VITALS: BP 134/77; PULSE 61; RESP 17; TEMP 36.8; O2SAT 98
[2023-08-14 05:20] LABS: Basophils # 0.1 10^3/uL (0.0-0.1); Basophils % 0.2 %; Eosinophils # 14.6 10^3/uL (0.0-0.8); Eosinophils % 57.5 %; Hematocrit 42.2 % (36-47); Lymphocytes # 1.2 10^3/uL (0.8-4.8); Lymphocytes % 4.7 %; Mean Corpuscular HGB Conc 33.4 g/dL (30-55); Mean Corpuscular Hemoglobin 31.4 pg (27-33); Mean Platelet Volume 11.7 fL (7.4-10.4); Monocytes # 0.5 10^3/uL (0.2-0.9); Monocytes % 1.9 %; Neutrophils # 8.87 10^3/uL (1.8-7.7); Nucleated Red Blood Cells % 0 %; Platelet Count 252 10^3/cmm (157-399); Red Blood Count 4.49 10^6/uL (3.85-5.65); Red Cell Distribution Width 11.6 % (12.1-15.1); White Blood Count 25.36 10^3/uL (3.29-11.43)
[2023-08-14 05:39] LABS: Alanine Aminotransferase 37 U/L (0-33); Albumin Level 3.5 g/dL (3.5-5.2); Alkaline Phosphatase 91 U/L (35-105); Anion Gap 16.9 (5-19); Aspartate Amino Transferase 18 U/L (0-32); Blood Urea Nitrogen 11 mg/dL (6-20); Calcium 8.8 mg/dL (8.5-10.5); Carbon Dioxide 20 mmol/L (22-29); Chloride 103 mmol/L (98-107); Globulin 3.3 g/dL (1.3-4.6); Glomerular Filtration Rate 91.8 mL/min (90-130); Glucose 140 mg/dL (65-115); Osmolality Calculated 284 mOsm/kg (285-295); Potassium 3.9 mmol/L (3.5-5.1); Sodium 136 mmol/L (136-145); Total Bilirubin 0.3 mg/dL (0.15-1.2); Total Protein 6.8 g/dL (6.6-8.7)
[2023-08-14] MEDS: vancomycin 1,500 MG/300 ML PIGGYBACK 200 MG IV (05:47)
[2023-08-14 05:58] LABS: Slide Review Slide Review Perform
[2023-08-14 08:00] VITALS: BP 138/85; PULSE 57; RESP 16; TEMP 36.6; O2SAT 100
[2023-08-14] MEDS: pantoprazole DR 40 mg Tablet PO (09:07)
[2023-08-14] MEDS: methylPREDNISolone sod succ 125 mg/2 mL INJ IVP (09:07)
--- NOTE | 2023-08-14 10:06 | PM.DCS ---
Discharge Providers Date of Admission: 08/13/23 11:30 Date of Discharge: August 14, 2023 Attending Provider at Admission: Gomez Gonzalez MD Attending Provider at Discharge: Gomez Gonzalez MD Primary Care Provider: Grzegorz Macario MD Diagnoses at Discharge Discharge Diagnosis (1) Abscess of buttock: Status: Acute (2) Rash: Status: Acute Reason for Visit Reason for Visit: spider bite, rash all over Hospital Course Hospital Course Flores is a 43-year-old white female with history of likely spider envenomation on Friday who presented on August 11 with a worsening rash. Significant blistering, erythema and bruising was around envenomation site right buttocks and systemic rash. She had been systemically ill with nausea and vomiting. She was placed on vancomycin for concern of possible infection. She had been on prednisone and doxycycline at home so rash could conceivably have been from inflammation or doxycycline. MRSA PCR was obtained as well as blood cultures. She was also placed on Solu-Medrol on day 2. By August 13 she was doing better. Rash was still present but not as red over the abdomen and upper legs. Palms were less red. She had not had any fever. White count was elevated. Blood cultures were negative. Blister had leaked some fluid, but significant bruising had not extended nor was any black eschar present currently. With her significant improvement, some improvement in white blood cell count, no fever, it was thought she could be discharged home on Keflex. Bactrim and doxycycline were not used as MRSA was thought not to be likely at this point. She had also already received 3 days of vancomycin. MRSA PCR itself was still pending. She has to follow-up with wound care as she may still have some wound breakdown on her right buttock as well as her primary care provider. She was given opportunity ask questions, and agreed with the plan. She will finish her steroid taper. Physical Exam Narrative: General exam no distress Neck is supple Cardiovascular regular in rhythm without murmur Lungs clear Abdomen is soft Right buttock demonstrates a blister, with some surrounding bruising. Erythema is much improved. See descriptions earlier. Skin demonstrates scattered patches of erythema that is raised. Areas on palms and soles appear improved. Discharge Data Studies Completed and Pending Pending at discharge Category Date Time Status Blood Culture Stat Lab 08/12/23 09:10 Results MRSA [Methicillin Resistant S.aureu] Routine Lab 08/12/23 16:35 Received RPR with Reflex to Titer Routine Lab 08/13/23 05:08 Received Laboratory Results WBC 25.36 10^3/uL (3.29-11.43) H 08/14/23 05:08 RBC 4.49 10^6/uL (3.85-5.65) 08/14/23 05:08 Hgb 14.10 g/dL (11.27-16.99) 08/14/23 05:08 Hct 42.2 % (36-47) 08/14/23 05:08 MCV 94.0 fl (85-98) 08/14/23 05:08 MCH 31.4 pg (27-33) 08/14/23 05:08 MCHC 33.4 g/dL (30-55) 08/14/23 05:08 RDW 11.6 % (12.1-15.1) L 08/14/23 05:08 Plt Count 252 10^3/cmm (157-399) 08/14/23 05:08 MPV 11.7 fL (7.4-10.4) H 08/14/23 05:08 Neut % (Auto) 35.0 % 08/14/23 05:08 Lymph % (Auto) 4.7 % 08/14/23 05:08 [place] % (Auto) 1.9 % 08/14/23 05:08 Eos % (Auto) 57.5 % 08/14/23 05:08 Baso % (Auto) 0.2 % 08/14/23 05:08 Neut # (Auto) 8.87 10^3/uL (1.8-7.7) H 08/14/23 05:08 Lymph # (Auto) 1.2 10^3/uL (0.8-4.8) 08/14/23 05:08 [place] # (Auto) 0.5 10^3/uL (0.2-0.9) 08/14/23 05:08 Eos # (Auto) 14.6 10^3/uL (0.0-0.8) H 08/14/23 05:08 Baso # (Auto) 0.1 10^3/uL (0.0-0.1) 08/14/23 05:08 Nucleated RBC % (auto) 0 % 08/14/23 05:08 Nucleated RBCs # 0.0 /100WBC 08/14/23 05:08 ESR 14 mm/hr (0-15) 08/13/23 05:08 Sodium 136 mmol/L (136-145) 08/14/23 05:08 Potassium 3.9 mmol/L (3.5-5.1) 08/14/23 05:08 Chloride 103 mmol/L (98-107) 08/14/23 05:08 Carbon Dioxide 20 mmol/L (22-29) L 08/14/23 05:08 Anion Gap 16.9 (5-19) 08/14/23 05:08 BUN 11 mg/dL (6-20) 08/14/23 05:08 Creatinine 0.7 mg/dL (0.5-0.9) 08/14/23 05:08 GFR Calculation 91.8 mL/min (90-130) 08/14/23 05:08 Glucose 140 mg/dL (65-115) H 08/14/23 05:08 Calculated Osmolality 284 mOsm/kg (285-295) L 08/14/23 05:08 Calcium 8.8 mg/dL (8.5-10.5) 08/14/23 05:08 Total Bilirubin 0.3 mg/dL (0.15-1.2) 08/14/23 05:08 AST 18 U/L (0-32) 08/14/23 05:08 ALT 37 U/L (0-33) H 08/14/23 05:08 Alkaline Phosphatase 91 U/L (35-105) 08/14/23 05:08 C-Reactive Protein 36.9 mg/L (0.0-4.9) H 08/13/23 05:08 Total Protein 6.8 g/dL (6.6-8.7) 08/14/23 05:08 Albumin 3.5 g/dL (3.5-5.2) 08/14/23 05:08 Globulin 3.3 g/dL (1.3-4.6) 08/14/23 05:08 Procalcitonin 0.06 ng/mL (0-0.5) 08/12/23 08:20 HCG, Qual Negative (Negative) 08/12/23 08:20 Urine Color Yellow (Yellow) 08/12/23 19:00 Urine Appearance Slightly cloudy (CLEAR) 08/12/23 19:00 Urine pH 5 (5-7) 08/12/23 19:00 Ur Specific [place] 1.020 (1.005-1.030) 08/12/23 19:00 Urine Protein Neg (Negative) 08/12/23 19:00 Urine Glucose (UA) Norm (Normal) 08/12/23 19:00 Urine Ketones Negative (Negative) 08/12/23 19:00 Urine Blood Neg (Negative) 08/12/23 19:00 Urine Nitrate Negative (Negative) 08/12/23 19:00 Urine Bilirubin Neg (Negative) 08/12/23 19:00 Urine Urobilinogen 1 mg/dL (Negative) H 08/12/23 19:00 Ur Leukocyte Esterase Trace (Negative) H 08/12/23 19:00 Urine RBC 0-4 /hpf (0-2) H 08/12/23 19:00 Urine WBC 5-10 /hpf (0-5) H 08/12/23 19:00 Ur Squamous Epith Cells 5-10 /hpf (0-5) H 08/12/23 19:00 Amorphous Sediment Not Reportable 08/12/23 19:00 Urine Bacteria 1+ /hpf (NONE) H 08/12/23 19:00 Urine Mucus Trace /hpf 08/12/23 19:00 Vancomycin Trough 9.0 ug/mL (10-15) L 08/14/23 05:08 Vitals Last Vital Signs Temp 98 F 08/14/23 08:00 Pulse 57 L 08/14/23 08:00 Resp 16 08/14/23 08:00 BP 138/85 08/14/23 08:00 Pulse Ox 100 08/14/23 08:00 O2 Del Method Room Air 08/14/23 08:00 Discharge Plan Discharge Patient Disposition: Home Condition: Stable Prescriptions: New prednisone 20 mg tablet See Rx Instructions .ROUTE .COMPLEX Qty: 20 0RF Rx Instructions: 60mg/d 3 days, 40mg/d 3 days, 20mg/day 3 days, 10mg/d 3 days then stop cephalexin 500 mg capsule 500 mg PO TID Qty: 15 0RF Continued Sprintec (28) 0.25-35 mg-mcg tablet 1 tab PO DAILY triamcinolone acetonide 0.1 % cream See Rx Instructions .ROUTE .COMPLEX Rx Instructions: APPLY A THIN LAYER TO THE AFFECTED AREA(S) TWICE A DAY NEEDED. omeprazole 20 mg capsule,delayed release(DR/EC) 20 mg PO QAM Discontinued prednisone 10 mg tablet See Rx Instructions .ROUTE .COMPLEX Rx Instructions: TAKE 2 TABLETS BY MOUTH ONCE DAILY FOR 4 DAYS AND THEN TAKE 1 TAB ONCE DAILY FOR 4 DAYS. doxycycline hyclate 100 mg capsule 100 mg PO BID Discharge Orders: Discharge Order (Routine); Ordered 08/14/23 Ordered By: Gomez Gonzalez Referrals: Grzegorz Macario MD [Primary Care Provider] - 4-7 days [facility], [Staff Physician] - 4-7 days Patient Instructions: Opioid Safety Activity Restrictions/Additional Instructions: Keep wound clean and dry Follow-up with wound clinic as well as your primary care provider Return for any concerns Finish course of Keflex Keep pressure off wound on right buttock. Prednisone taper is 60 mg a day for 3 days, 40 mg a day for 3 days, 20 mg a day for 3 days, 10 mg a day for 3 days and then stop Discharge Attestations Time Spent in Discharge Care*: greater than 30 min Quality Metrics Clinical Quality Measures [ No reported AMI, CVA or VTE this stay] Coding Level of Care Code 76970 Total time (in minutes) for Discharge: 40 Diagnoses Abscess of buttock L02.31 Rash R21
[2023-08-14 11:55] LABS: RPR w(Moniotor) w/REFL Titer NON-REACTIVE (NON-REACTIVE)
[2023-08-14 12:00] VITALS: BP 137/76; PULSE 55; RESP 16; TEMP 36.4; O2SAT 99
[2023-08-14 13:42] VITALS: BP 137/76; PULSE 55; RESP 16; TEMP 36.4; O2SAT 99
[2023-08-15 14:14] LABS: Methicillin-Resist S.aureu PCR NOT DETECTED (NOT DETECTED)
== END 2023-08-14 13:30 | disposition home or self-care (01) | DRG 603 ==
LOC: ER 11:20 → MEDSURG 11:30
PROVIDERS: Admitting Provider Internal Medicine; Emergency Provider Family Medicine; PCP Family Medicine; Visit Provider Internal Medicine
DX: L02.31 Cutaneous abscess of buttock (principal); R21 Rash and other nonspecific skin eruption; T63.331A Toxic effect of venom of brown recluse spider, accidental (unintentional), initial encounter; Y99.9 Unspecified external cause status; E87.6 Hypokalemia; K21.9 Gastro-esophageal reflux disease without esophagitis; Z23 Encounter for immunization
CPT/HCPCS: 36415; 80053; 80202; 81001; 84145; 84703; 85025; 85651; 86140; 86592; 87040; 87641; 90471; 90714; 96365; 96375; 99285; G0378; J1200; J2919; J3370; J7050

== ENCOUNTER 2024-08-03 08:06 | Outpatient (CLI) | payer OTHER, SELFPAY ==
--- NOTE | 2024-08-03 08:09 | MM_ITS ---
WS: [id number] BILATERAL 3D TOMOSYNTHESIS DIGITAL SCREENING MAMMOGRAPHY WITH CAD CLINICAL INFORMATION: SCREENING HISTORY: Screening mammogram. No current complaints. COMPARISON: Baseline TECHNIQUE: Bilateral CC and MLO views. FINDINGS: Scattered fibroglandular densities bilaterally. No suspicious focal mass, asymmetry, calcifications, or architectural distortion. No evidence of malignancy. MM/MM scr BI tomosynthesis [id number] IMPRESSION: DENSITY: There are scattered areas of fibroglandular density. BI-RADS: 1 - Negative. FOLLOW UP: 1 Year Follow-up Recommend return to annual screening mammography.
== END 2024-08-03 08:07 | disposition home or self-care (01) ==
PROVIDERS: PCP Family Medicine; Visit Provider Family Medicine
DX: Z12.31 Encounter for screening mammogram for malignant neoplasm of breast (principal); R92.323 Mammographic fibroglandular density, bilateral breasts
CPT/HCPCS: 77063; 77067